=== PATIENT | male | born 1965 | race Asian ===

== ENCOUNTER 2018-01-24 00:10 | Outpatient (CLI) | payer OTHER ==
[~2018-01-24 00:10] MED LIST: ATRIPLA OR
== END 2018-01-24 00:24 | disposition short-term general hospital (02) ==
LOC: AMB 00:10
DX: M54.2 Cervicalgia (principal); V49.88XA Car occupant (driver) (passenger) injured in other specified transport accidents, initial encounter; Y93.89 Activity, other specified; Y92.89 Other specified places as the place of occurrence of the external cause; Y99.8 Other external cause status
CPT/HCPCS: A0425; A0427

== ENCOUNTER 2018-01-24 00:36 | Emergency (ER) | payer OTHER ==
[~2018-01-24] VITALS: Ht 165.1 cm; Wt 61.3 kg
[2018-01-24 00:30] VITALS: TEMP 99.5
[2018-01-24 00:59] LABS: PLATELET COUNT 130 K/uL (142-355)
[2018-01-24 01:39] LABS: POTASSIUM 2.9 mmol/L (3.6-5.2)
[2018-01-24 02:47] VITALS: BP 125/74
== END 2018-01-24 02:48 | disposition home or self-care (01) ==
LOC: ED 00:36
DX: S00.83XA Contusion of other part of head, initial encounter (principal); M54.2 Cervicalgia; R51 Headache; V40.1XXA Car passenger injured in collision with pedestrian or animal in nontraffic accident, initial encounter; Y92.89 Other specified places as the place of occurrence of the external cause
CPT/HCPCS: 80053; 85027; 99283

== ENCOUNTER 2022-04-25 08:08 | Emergency (ER) | payer OTHER ==
[~2022-04-25] VITALS: Ht 165.1 cm; Wt 63.6 kg
[2022-04-25 08:12] VITALS: BP 131/81; TEMP 97
== END 2022-04-25 09:20 | disposition home or self-care (01) ==
LOC: ED 08:08
DX: S91.021A Laceration with foreign body, right ankle, initial encounter (principal); W25.XXXA Contact with sharp glass, initial encounter; Y92.89 Other specified places as the place of occurrence of the external cause
CPT/HCPCS: 96372; 99283; J1885

== ENCOUNTER 2022-09-05 08:12 | Emergency (ER) | payer OTHER ==
[~2022-09-05] VITALS: Ht 165.1 cm; Wt 62.1 kg
[2022-09-05 08:20] VITALS: BP 126/81; TEMP 99.7
== END 2022-09-05 09:10 | disposition home or self-care (01) ==
LOC: ED 08:12
DX: S76.011A Strain of muscle, fascia and tendon of right hip, initial encounter (principal); M62.838 Other muscle spasm; W22.8XXA Striking against or struck by other objects, initial encounter; Y92.89 Other specified places as the place of occurrence of the external cause
CPT/HCPCS: 99282

== ENCOUNTER 2022-09-11 13:06 | Outpatient (CLI) | payer OTHER | END 2022-09-11 20:43 | disposition home or self-care (01) | LOC: RAD 13:06 | PROVIDERS: ATTEND Nurse Practitioner Family | DX: M54.17 Radiculopathy, lumbosacral region (principal) ==

== ENCOUNTER 2022-09-16 14:04 | Outpatient (CLI) | payer OTHER | END 2022-09-16 19:40 | disposition home or self-care (01) | LOC: US 14:04 | PROVIDERS: ATTEND Nurse Practitioner Family | DX: M79.604 Pain in right leg (principal) ==

== ENCOUNTER 2022-09-23 13:25 | Outpatient (CLI) | payer OTHER | END 2022-09-23 22:03 | disposition home or self-care (01) | LOC: MRI 13:25 | PROVIDERS: ATTEND Nurse Practitioner Family | DX: M54.17 Radiculopathy, lumbosacral region (principal) ==

== ENCOUNTER 2022-10-17 16:09 | Outpatient (CLI) | payer OTHER | END 2022-10-17 19:21 | disposition home or self-care (01) | LOC: RAD 16:09 | PROVIDERS: ATTEND Physician Assistant | DX: M25.561 Pain in right knee (principal) ==